=== PATIENT | female | born 1970 | race Caucasian/White ===

== ENCOUNTER → 2017-07-26 | Outpatient (CLI) | payer OTHER ==
--- NOTE | 2017-07-26 11:11 | MM ---
Reason for exam: additional evaluation requested from prior study. Last mammogram was performed 1 year and 10 months ago. History: Took hormonal contraceptives for 1 year. MG 3D Diag Mammo W/Cad ALANNAH Bilateral CC and MLO view(s) were taken. ML and spot compression MLO view(s) were taken of the left breast. Prior study comparison: October 01, 2015, bilateral MG 3d screening mammo w/cad. August 06, 2014, bilateral MG work up mamm w CAD BILAT. The breast tissue is extremely dense which could obscure a lesion on mammography. There is no discrete abnormality. These results were verbally communicated with the patient and result sheet given to the patient on 07/26/17. ASSESSMENT: Negative, BI-RAD 1 RECOMMENDATION: Routine screening mammogram of both breasts in 1 year.
== END | disposition home or self-care (01) ==
LOC: RADMAMWWP 07:47
PROVIDERS: ATTEND Family Medicine
DX: R92.8 Other abnormal and inconclusive findings on diagnostic imaging of breast (principal)
CPT/HCPCS: 77066; G0279

== ENCOUNTER → 2017-10-15 | Outpatient (CLI) | payer OTHER ==
--- NOTE | 2017-10-15 23:05 | XR ---
EXAMINATION TYPE: XR shoulder complete RT DATE OF EXAM: 10/15/2017 COMPARISON: NONE HISTORY: Pain TECHNIQUE: Three views are submitted. FINDINGS: The osseous structures are intact. There is no acute fracture or dislocation. The AC joint is maint ained. IMPRESSION: 1. No acute process.
== END | disposition home or self-care (01) ==
LOC: RADXRMAIN 11:41
PROVIDERS: ATTEND Emergency Medicine
DX: S29.012A Strain of muscle and tendon of back wall of thorax, initial encounter (principal)

== ENCOUNTER → 2018-05-17 | Outpatient (CLI) | payer BC, OTHER ==
--- NOTE | 2018-05-17 10:52 | FL ---
ESOPHOGRAM. HISTORY: Dysphagia Esophagram was performed per the air contrast technique. The patient swallowed barium and effervesce nt crystals without difficulty or delay. There is anterior fixation plate noted extending from C3 thr ough C5. The plate does impress upon the posterior wall of the cervical esophagus. Esophageal peristalsis and motility appear to be within normal limits. There is no evidence for filling defect, mass or diverticulum. No hiatal hernia seen. Subsequently single contrast cervical esophagram was performed which fails demonstrate evidence for a spiration penetration or mass. IMPRESSION: 1.There is anterior fixation plate noted extending from C3 through C5. The plate does impress upon th e posterior wall of the cervical esophagus. Otherwise unremarkable study.
== END | disposition home or self-care (01) ==
LOC: RADFLWHC 09:34
PROVIDERS: ATTEND Surgery
DX: T84.89XA Other specified complication of internal orthopedic prosthetic devices, implants and grafts, initial encounter (principal); R13.10 Dysphagia, unspecified; K21.9 Gastro-esophageal reflux disease without esophagitis; Z98.1 Arthrodesis status
CPT/HCPCS: 74220

== ENCOUNTER 2018-05-21 10:05 | Day surgery (SDC) | payer OTHER ==
[2018-05-20 08:33] VITALS: BMI 20.1
[~2018-05-21 10:05] MED LIST: DEXAMETHASONE SOD PHOSPHATE 10 MG/ML 1 ML VIAL IV ONE; HYDROmorphone 0.5 MG/0.5 ML SYRINGE IVP PRN; LACTATED RINGERS 1,000 ML IV SCH; LIDOCAINE 1% 20 ML VIAL (10MG/ML) FOR IV START INTRADERMA PRN; ONDANSETRON 4 MG/2 ML VIAL IVP ONE; SCOPOLAMINE 1.5MG/72HR PATCH TRANSDERM ONE
[2018-05-21 10:28] VITALS: RESP 16; TEMP 99.4
[2018-05-21] MEDS ORDERED: LIDOCAINE 1% INJ 10MG/ML (20 ML MDV) ONE (10:43)
[2018-05-21] MEDS ORDERED: PROPOFOL 10 MG/ML 20 ML VIAL IV ONE (10:43)
--- NOTE | 2018-05-21 10:48 | P.GSHP ---
History of Present Illness H&P Date: 05/21/18 Chief Complaint: GERD, dysphagia This a 48-year-old female who presents today for EGD. She's had issues with GERD and dysphagia. Past Medical History Past Medical History: Musculoskeletal Disorder Additional Past Medical History / Comment(s): Dysphagia; chronic neck pain History of Any Multi-Drug Resistant Organisms: None Reported Past Surgical History: Section Additional Past Surgical History / Comment(s): ovarian cyst X3; NECK FUSION - 2010 Past Anesthesia/Blood Transfusion Reactions: No Reported Reaction Additional Past Anesthesia/Blood Transfusion Reaction / Comment(s): PT STATES SHE IS OVERLY-EMOTIONAL WHEN SHE WAKES UP FROM ANESTHESIA Smoking Status: Current every day smoker - Past Family History Mother Family Medical History: No Reported History Medications and Allergies Home Medications Medication Instructions Recorded Confirmed Type ALPRAZolam [Xanax] 1 mg PO Q8HR PRN 09/25/14 05/21/18 History HYDROcodone/APAP 5-325MG [[place] 5] 1 each PO Q4HR PRN 09/25/14 05/21/18 History Allergies Allergy/AdvReac Type Severity Reaction Status Date / Time codeine Allergy Anaphylaxis Verified 05/21/18 10:22 Penicillins Allergy Itching Verified 05/21/18 10:22 Surgical - Exam Vital Signs Temp Pulse Resp BP Pulse Ox 99.4 F 75 16 123/56 99 05/21/18 10:26 05/21/18 10:26 05/21/18 10:26 05/21/18 10:26 05/21/18 10:26 - General well developed, no distress - Eyes PERRL - ENT normal pinna - Neck no masses - Respiratory normal expansion - Cardiovascular Rhythm: regular - Abdomen Abdomen: soft, non tender Assessment and Plan Assessment: GERD, dysphagia. We'll perform EGD.
[2018-05-21] MEDS ORDERED: IV FLUID CONTINUATION 700 ML IV ONE (10:59)
--- NOTE | 2018-05-21 10:59 | P.OP ---
Date of Procedure: 05/21/18 Preoperative Diagnosis: GERD Postoperative Diagnosis: Antral gastritis Small hiatal hernia Mild esophagitis Procedure(s) Performed: EGD Anesthesia: MAC Surgeon: Sandeep Sotelo Pathology: other (Antral, esophagus) Condition: stable Disposition: PACU Description of Procedure: Patient's placed on the endoscopy table in the lateral position. She received IV sedation. The gastroscope placed oropharynx and passed in the esophagus into the stomach. Scope was then placed through the pylorus. The first and second portion of the duodenum appeared normal. Scope was then brought back the antrum appeared mildly inflamed. A biopsies performed. The scope was unretroflexed and remainder stomach appeared normal. There was a small hiatal hernia. The GE junction was at 40 cm.. The distal esophagus appeared inflamed a biopsies performed. The proximal esophagus appeared normal. The scope was withdrawn for patient.
[2018-05-21 11:09] VITALS: BP 106/71; PULSE 71
== END 2018-05-21 12:01 | disposition home or self-care (01) ==
LOC: ORWHC2ENDO 10:05
PROVIDERS: ATTEND Surgery
DX: K31.9 Disease of stomach and duodenum, unspecified (principal); K29.60 Other gastritis without bleeding; K21.0 Gastro-esophageal reflux disease with esophagitis; F17.210 Nicotine dependence, cigarettes, uncomplicated; K44.9 Diaphragmatic hernia without obstruction or gangrene; G89.29 Other chronic pain; M54.2 Cervicalgia; Z79.899 Other long term (current) drug therapy; Z88.5 Allergy status to narcotic agent; Z88.0 Allergy status to penicillin; F41.9 Anxiety disorder, unspecified
CPT/HCPCS: 81025; 88305; 43239; J2001; J2704

== ENCOUNTER 2019-12-08 19:59 | Inpatient (IN) | payer OTHER ==
[2019-12-08] MEDS ORDERED: ONDANSETRON 4 MG/2 ML VIAL IVP STA (20:22)
--- NOTE | 2019-12-08 20:25 | ED ---
General Adult HPI - General Chief complaint: GI Bleed Stated complaint: Abd Pain Time Seen by Provider: 12/08/19 20:11 Source: patient, family Mode of arrival: wheelchair Limitations: no limitations - History of Present Illness Initial comments: Dictation was produced using Rainbow dictation software. please excuse any grammatical, word or spelling errors. This patient was cared for during a federal and state declared state of emergency secondary to Covid 19 Chief Complaint: 49-year-old feel presents with bright red blood per rectum History of Present Illness: 79-year-old codys presents with bright red blood per rectum. Patient states that all day today she's had bright red blood every time she has a bowel movement. She does present with some pelvic pain. Patient has any medical problems. Denies any history of hemorrhoids. States she does have some crampy suprapubic pain. Mild nausea but no vomiting. Patient denies ever experiencing anything like this before. She does not think anything is patient denies any comorbidities. The ROS documented in this emergency department record has been reviewed and confirmed by me. Those systems with pertinent positive or negative responses have been documented in the HPI. All other systems are other negative and/or noncontributory. PHYSICAL EXAM: General Impression: Alert and oriented x3, acute distress secondary to pain HEENT: Normocephalic atraumatic, extra-ocular movements intact, pupils equal and reactive to light bilaterally, mucous membranes moist. Cardiovascular: Heart regular rate and rhythm Chest: Able to complete full sentences, no retractions, no tachypnea Abdomen: abdomen soft, non-tender, non-distended, no organomegaly Musculoskeletal: Pulses present and equal in all extremities, no peripheral edema Motor: no focal deficits noted Neurological: CN II-XII grossly intact, no focal motor or sensory deficits noted Skin: Intact with no visualized rashes Psych: Normal affect and mood Rectal exam: No gross blood, pain with digital rectal exam, multiple skin tags and polyps at the external anus ED course: 49-year-old female presents with bright blood per rectum and abdominal pain. All signs upon arrival are within acceptable limits. Laboratory evaluation obtained. CBC shows mild leukocytosis of 15.7. Coag panel unremarkable. Metabolic panel is negative. Computed tomography scan of the abdomen and pelvis was obtained showing wall thickening of the descending colon suggestive of nonspecific colitis. Patient given IV analgesia and so has persistent pain. Considering patient's degree of abdominal pain will have patient admitted for pain control and GI consultation. Discussed patient case with Dr. Damico who is willing to accept patients care. EKG interpretation: Ventricular rate 60, sinus rhythm,. Interval 106, QRS 80, QTC 420. No PA prolongation, no QTC prolongation, no ST or T-wave changes noted. . Overall, this EKG is unremarkable - Related Data Home Medications Medication Instructions Recorded Confirmed ALPRAZolam [Xanax] 1 mg PO BID PRN 09/25/14 12/08/19 Allergies Allergy/AdvReac Type Severity Reaction Status Date / Time codeine Allergy Anaphylaxis Verified 12/08/19 23:06 Penicillins Allergy Itching Verified 12/08/19 23:06 Review of Systems ROS Statement: Those systems with pertinent positive or pertinent negative responses have been documented in the HPI. ROS Other: All systems not noted in ROS Statement are negative. Past Medical History Past Medical History: No Reported History History of Any Multi-Drug Resistant Organisms: None Reported Past Surgical History: Section Additional Past Surgical History / Comment(s): ovarian cyst X3; X2; NECK FUSION - 2011 Past Anesthesia/Blood Transfusion Reactions: No Reported Reaction Additional Past Anesthesia/Blood Transfusion Reaction / Comment(s): PT STATES SHE IS OVERLY-EMOTIONAL WHEN SHE WAKES UP FROM ANESTHESIA Past Psychological History: Anxiety Smoking Status: Current every day smoker Past Alcohol Use History: Occasional Past Drug Use History: None Reported General Exam Limitations: no limitations Course Vital Signs 12/08/19 12/08/19 20:00 23:06 Temperature 97.9 F Pulse Rate 81 79 Respiratory 17 17 Rate Blood Pressure 115/84 110/60 O2 Sat by Pulse 98 99 Oximetry Medical Decision Making - Lab Data Result diagrams: 12/08/19 20:13 12/08/19 20:13 Lab Results 12/08/19 12/08/19 12/08/19 Range/Units 20:12 20:13 20:13 WBC 15.7 H (3.8-10.6) k/uL RBC 4.58 (3.80-5.40) m/uL Hgb 14.2 (11.4-16.0) gm/dL Hct 44.6 (34.0-46.0) % MCV 97.4 (80.0-100.0) fL MCH 31.0 (25.0-35.0) pg MCHC 31.8 (31.0-37.0) g/dL RDW 12.8 (11.5-15.5) % Plt Count 227 (150-450) k/uL Neutrophils % 73 % Lymphocytes % 20 % Monocytes % 5 % Eosinophils % 1 % Basophils % 0 % Neutrophils # 11.4 H (1.3-7.7) k/uL Lymphocytes # 3.1 (1.0-4.8) k/uL Monocytes # 0.7 (0-1.0) k/uL Eosinophils # 0.2 (0-0.7) k/uL Basophils # 0.0 (0-0.2) k/uL PT 9.9 (9.0-12.0) sec INR 1.0 (<1.2) APTT 26.7 (22.0-30.0) sec Sodium (137-145) mmol/L Potassium (3.5-5.1) mmol/L Chloride (98-107) mmol/L Carbon Dioxide (22-30) mmol/L Anion Gap mmol/L BUN (7-17) mg/dL Creatinine (0.52-1.04) mg/dL Est GFR (CKD-EPI)AfAm (>60 ml/min/1.73 sqM) Est GFR (CKD-EPI)NonAf (>60 ml/min/1.73 sqM) Glucose (74-99) mg/dL Calcium (8.4-10.2) mg/dL Urine HCG, Qual (Not Detectd) Blood Type O Negative Blood Type Recheck O Neg Bld Type Recheck Status No Antibody Screen NEGATIVE Spec Expiration Date 12/11/2019231112/08/19 12/08/19 Range/Units 20:13 20:13 WBC (3.8-10.6) k/uL RBC (3.80-5.40) m/uL Hgb (11.4-16.0) gm/dL Hct (34.0-46.0) % MCV (80.0-100.0) fL MCH (25.0-35.0) pg MCHC (31.0-37.0) g/dL RDW (11.5-15.5) % Plt Count (150-450) k/uL Neutrophils % % Lymphocytes % % Monocytes % % Eosinophils % % Basophils % % Neutrophils # (1.3-7.7) k/uL Lymphocytes # (1.0-4.8) k/uL Monocytes # (0-1.0) k/uL Eosinophils # (0-0.7) k/uL Basophils # (0-0.2) k/uL PT (9.0-12.0) sec INR (<1.2) APTT (22.0-30.0) sec Sodium 138 (137-145) mmol/L Potassium 3.8 (3.5-5.1) mmol/L Chloride 107 (98-107) mmol/L Carbon Dioxide 23 (22-30) mmol/L Anion Gap 8 mmol/L BUN 12 (7-17) mg/dL Creatinine 0.70 (0.52-1.04) mg/dL Est GFR (CKD-EPI)AfAm >90 (>60 ml/min/1.73 sqM) Est GFR (CKD-EPI)NonAf >90 (>60 ml/min/1.73 sqM) Glucose 106 H (74-99) mg/dL Calcium 9.3 (8.4-10.2) mg/dL Urine HCG, Qual Not Detected (Not Detectd) Blood Type Blood Type Recheck Bld Type Recheck Status Antibody Screen Spec Expiration Date Disposition Clinical Impression: Abdominal pain Disposition: ADMITTED IP TO THIS HOSP Condition: Fair Referrals: eDjon Damico MD [Primary Care Provider] - 1-2 days Decision Time: 23:12
[2019-12-08 20:39] LABS: Basophils % (A) 0 %; Eosinophils # (A) 0.2 k/uL (0-0.7); Eosinophils % (A) 1 %; HCT 44.6 % (34.0-46.0); HGB 14.2 gm/dL (11.4-16.0); Lymphocytes # (A) 3.1 k/uL (1.0-4.8); Lymphocytes % (A) 20 %; MCHC 31.8 g/dL (31.0-37.0); MCV 97.4 fL (80.0-100.0); Mean Platelet Volume 9.4; Monocytes # (A) 0.7 k/uL (0-1.0); Monocytes % (A) 5 %; Neutrophils # (A) 11.4 k/uL (1.3-7.7); Neutrophils % (A) 73 %; Platelet Count 227 k/uL (150-450); RBC 4.58 m/uL (3.80-5.40); RDW 12.8 % (11.5-15.5); WBC 15.7 k/uL (3.8-10.6)
[2019-12-08 20:48] LABS: African American GFR (CKD) >90 (>60 ml/min/1.73 sqM); Anion Gap 8 mmol/L; Blood Urea Nitrogen 12 mg/dL (7-17); Calcium 9.3 mg/dL (8.4-10.2); Carbon Dioxide 23 mmol/L (22-30); Chloride 107 mmol/L (98-107); Glucose 106 mg/dL (74-99); Non-African American GFR(CKD) >90 (>60 ml/min/1.73 sqM); Partial Thromboplastin Time 26.7 sec (22.0-30.0); Potassium 3.8 mmol/L (3.5-5.1); Prothrombin Time 9.9 sec (9.0-12.0); Sodium 138 mmol/L (137-145)
--- NOTE | 2019-12-08 21:40 | CT ---
EXAMINATION TYPE: CT abdomen pelvis w con DATE OF EXAM: 12/08/2019 COMPARISON: 12/12/2012 HISTORY: Pelvic pain. CT DLP: 531.4 mGycm Automated exposure control for dose reduction was used. CONTRAST: Performed with IV Contrast, patient injected with 100 mL of Isovue 300. Lung bases are clear. There is no pleural effusion. Heart size is normal. There is no pericardial eff usion. Liver spleen pancreas gallbladder stomach appear normal. Bile ducts are not dilated. There is no adrenal mass. Kidneys show satisfactory contrast opacification. There is no hydronephrosi s. Ureters are not dilated. Bladder distends smoothly. Uterus is anteverted. There is no inguinal hernia. There is no free fluid in the pelvis. There is 3 cm cyst on the left ovary. There is some diffuse wall thickening of the descending colon extending into the sigmoid colon. There is no evidence of free air. There is no ascites. There is no evidence of a bowel obstruction. The porfirio mbar vertebra have normal spacing and alignment. Posterior elements are intact. Bony pelvis appears i ntact. There is no evidence of thickened appendix. Appendix is partly seen and appears normal. IMPRESSION: There is some wall thickening of the descending colon suggestive of nonspecific colitis that is a robel nge compared to old exam. Cyst on the left ovary.
[2019-12-08] MEDS ORDERED: KETOROLAC 30 MG/ML 1 ML VIAL IVP STA (22:54)
[2019-12-08] MEDS ORDERED: MORPHINE SULFATE 4 MG/ML SYRINGE IVP STA (22:58)
[2019-12-08] MEDS ORDERED: ACETAMINOPHEN TAB 325 MG TAB PO PRN (23:08)
[2019-12-08] MEDS ORDERED: NALOXONE 0.4 MG/ML 1 ML VIAL IV PRN (23:08)
[2019-12-08] MEDS: PANTOPRAZOLE 40 MG/10 ML VIAL IV SCH (23:28)
[2019-12-08] MEDS: SODIUM CHLORIDE 0.9% 1,000 ML IV SCH (23:28)
[2019-12-09] MEDS: MORPHINE SULFATE 4 MG/ML SYRINGE IV PRN ×4 (04:30→20:01)
[2019-12-09] MEDS: ONDANSETRON 4 MG/2 ML VIAL IVP PRN ×2 (04:31→21:11)
--- NOTE | 2019-12-09 08:50 | HP ---
HISTORY AND PHYSICAL 49-year-old female came in with a GI bleed to the emergency room, bright red blood per rectum every time she has a bowel movement in the last 24 hours. She denies any history of hemorrhoids. She has lower abdominal pain. Has never had anything like this before. REVIEW OF SYSTEMS: Fourteen-point review of systems negative except for anxiety, chronic cervical and lumbar disc disease. PHYSICAL EXAM: Vital signs reviewed. Temp 97.9, pulse 70 to 81, respiratory 16-20, blood pressure 110 to 115 over 60s to 80s, O2 98 to 99% on room air. HEAD: Normocephalic, atraumatic. Cardiovascular S1, S2. ABDOMEN: Soft. MUSCULOSKELETAL: Range of motion. Tender to palpation, paracervical muscles. Cranial nerves are intact. SKIN no visible rash. PSYCH fair mood and affect. CBC shows mild leukocytosis 15.7. CT scan of the abdomen and pelvis showing mild thickening of the descending colon, nonspecific colitis. IV analgesia pain control. GI consultation is pending. EKG shows ventricular rate is normal. No prolongation or ST changes. Home medicines Xanax 1 mg b.i.d. p.r.n. ALLERGIES: CODEINE, PENICILLIN. PAST SURGICAL HISTORY: x2, neck fusion. Current everyday smoker. Occasional alcohol. White count 15.7, hemoglobin 14.2. ASSESSMENT AND PLAN: 1. Acute abdominal pain. 2. Gastrointestinal bleed. GI consult. 3. Monitor hemoglobin. 4. History of anxiety. 5. Cervical disc disease. 6. Continue current home medicines. 7. Monitor for any signs of bleeding. 8. She has positive stool occult blood. Possibly need a colonoscopy. Await for Gastroenterology recommendations. MMODL / IJN: [id number] /
[2019-12-09] MEDS: PANTOPRAZOLE 40 MG/10 ML VIAL IV SCH (08:52)
[2019-12-09 09:25] LABS: Basophils % (A) 0 %; Eosinophils # (A) 0.3 k/uL (0-0.7); Eosinophils % (A) 3 %; HCT 38.3 % (34.0-46.0); HGB 12.8 gm/dL (11.4-16.0); Lymphocytes # (A) 3.7 k/uL (1.0-4.8); Lymphocytes % (A) 35 %; MCH 33.1 pg (25.0-35.0); MCHC 33.5 g/dL (31.0-37.0); MCV 98.8 fL (80.0-100.0); Mean Platelet Volume 9.9; Monocytes # (A) 0.5 k/uL (0-1.0); Monocytes % (A) 5 %; Neutrophils # (A) 5.7 k/uL (1.3-7.7); Neutrophils % (A) 54 %; Platelet Count 203 k/uL (150-450); RBC 3.87 m/uL (3.80-5.40); WBC 10.6 k/uL (3.8-10.6)
[2019-12-09] MEDS: SODIUM CHLORIDE 0.9% 1,000 ML IV SCH ×2 (10:29→21:11)
--- NOTE | 2019-12-09 16:35 | CONS ---
CONSULTATION DATE OF DICTATION: 12/09/2019 REASON FOR CONSULTATION: Abdominal pain and rectal bleeding. HISTORY OF PRESENT ILLNESS: The patient is a 49-year-old pleasant white female who came into the emergency room complaining of severe lower abdominal pain that started yesterday morning. The pain was mostly in the suprapubic and left lower quadrant area followed by 2 hard stools, and subsequently she had multiple episodes of bright red blood per rectum. She had at least 7 or 8 of these episodes, came into the emergency room and had a CT of the abdomen and pelvis done that showed thickening of the left colon consistent with colitis. She was admitted to the hospital for further evaluation. This morning she had about 3 episodes of bright red blood per rectum. Her abdominal pain has slightly improved. She never had these symptoms in the past. No prior history of colonoscopy. Her hemoglobin remains stable at 13 g/dL. PAST MEDICAL HISTORY: Anxiety. PAST SURGICAL HISTORY: Unremarkable. HOME MEDICATIONS: Xanax. ALLERGIES: CODEINE and PENICILLIN. SOCIAL HISTORY: Chronic smoker. No alcohol use. FAMILY HISTORY: Unremarkable. REVIEW OF SYSTEMS: CARDIOPULMONARY: No chest pain or shortness of breath. GENITOURINARY: No dysuria or hematuria. MUSCULOSKELETAL: Unremarkable. SKIN: Unremarkable. ENDOCRINE: Unremarkable. PSYCHIATRIC: Unremarkable. NEUROLOGY: Unremarkable. ENT/VISION: Unremarkable. CONSTITUTIONAL: No recent weight loss. No fever, chills, night sweats. PAST SURGICAL HISTORY: section, cervical neck fusion and ovarian cyst removal. PHYSICAL EXAMINATION: Blood pressure is 115/84, pulse rate 81, temperature 97.9. HEENT examination unremarkable. Conjunctivae pink. Sclerae anicteric. Oral cavity no lesions. NECK: No JVD or lymph node enlargement. CHEST: Clear to auscultation. HEART: Regular rate and rhythm. ABDOMEN: Soft. Bowel sounds are positive. No organomegaly. EXTREMITIES: No pedal edema. SKIN: No rashes. NEUROLOGIC: Alert and oriented x3. No focal deficits. LABS: WBC 10.6, hemoglobin 12.8, platelets normal. Basic metabolic panel is within normal limits. Stool occult blood positive. C difficile is negative. CT of the abdomen and pelvis done in the emergency room did show thickening of the colon involving the descending colon suspicious for acute colitis. IMPRESSION: This is a patient who presented to the hospital with acute onset of lower abdominal pain followed by rectal bleeding that started yesterday morning. She had several episodes of bright red blood per rectum. Her hemoglobin remains stable at 12.5 g/dL. CT of the abdomen showed thickening of the descending colon consistent with nonspecific colitis. Her clinical presentation is very consistent with acute ischemic colitis, but possibility of infectious colitis cannot be excluded. C difficile toxin is negative. RECOMMENDATIONS: 1. Start her on a clear liquid diet. 2. Monitor CBC on a daily basis. 3. Will proceed with a colonoscopy tomorrow. Discussed with her risks, benefits and complications of the procedure, and she is agreeable to it. Thank you for this consultation. MMODL / IJN: [id number] /
[2019-12-09] MEDS: ALPRAZolam 1 MG TAB PO PRN (16:56)
[2019-12-09] MEDS ORDERED: PEG 3350-NA SULF,BICARB,CL/KCL 4,000 ML BOTTLE PO ONE (17:00)
[2019-12-10] MEDS: MORPHINE SULFATE 4 MG/ML SYRINGE IV PRN ×5 (00:06→22:21)
[2019-12-10] MEDS: SODIUM CHLORIDE 0.9% 1,000 ML IV SCH ×3 (04:34→22:21)
[2019-12-10 06:28] LABS: Basophils % (A) 0 %; Eosinophils # (A) 0.4 k/uL (0-0.7); Eosinophils % (A) 3 %; HCT 34.3 % (34.0-46.0); HGB 11.3 gm/dL (11.4-16.0); Lymphocytes # (A) 2.7 k/uL (1.0-4.8); Lymphocytes % (A) 25 %; MCH 32.7 pg (25.0-35.0); MCV 99.2 fL (80.0-100.0); Monocytes # (A) 0.7 k/uL (0-1.0); Monocytes % (A) 6 %; Neutrophils # (A) 6.9 k/uL (1.3-7.7); Neutrophils % (A) 63 %; Platelet Count 177 k/uL (150-450); RBC 3.46 m/uL (3.80-5.40); RDW 12.9 % (11.5-15.5); WBC 10.9 k/uL (3.8-10.6)
[2019-12-10] MEDS: PANTOPRAZOLE 40 MG/10 ML VIAL IV SCH (08:33)
[2019-12-10] MEDS ORDERED: IV FLUID CONTINUATION 1,000 ML IV ONE (12:17)
[2019-12-10] MEDS ORDERED: PROPOFOL 10 MG/ML 20 ML VIAL IV ONE (12:19)
--- NOTE | 2019-12-10 12:42 | P.PCN ---
Date of Procedure: 12/10/19 Procedure(s) Performed: BRIEF HISTORY: Patient is a 48-year-old pleasant white female admitted hospital with lower abdominal pain and acute lower GI bleed. CAT scan showed left sided colitis. She is scheduled scheduled for an colonoscopy to evaluate further. PROCEDURE PERFORMED: Colonoscopy with biopsy. PREOPERATIVE DIAGNOSIS: Lower abdominal pain and acute lower GI bleed. IV sedation per Anesthesia. PROCEDURE: After informed consent was obtained, the patient, was brought into the endoscopy unit. IV sedation was administered by Anesthesia under continuous monitoring. Digital rectal examination was normal. Initially the Olympus CF-160 flexible video colonoscope was then inserted in the rectum, gradually advanced into the cecum without any difficulty. Careful examination was performed as the scope was gradually being withdrawn. Ileocecal valve and the appendiceal orifice were visualized and appeared normal. Prep was excellent. Mucosa of the cecum, ascending colon, transverse colon, descending colon, appeared normal. In the distal descending colon and rectosigmoid colon extending from 25-40 cm from the anal verge there was segmental colitis with mucosal erythema and congested appearing mucosa consistent with ischemic colitis. Multiple biopsies. Rest of the sigmoid colon, and rectum appeared normal. Retroflexion was performed in the rectum and no lesions were seen. The patient tolerated the procedure well. IMPRESSION: Segmental colitis involving the proximal sigmoid colon and distal descending colon extending from 25-40 cm from the anal verge with mucosal erythema and congestion appearing mucosa consistent with ischemic colitis Rest of the colon appeared normal RECOMMENDATIONS: Findings of this examination were discussed with the patient. She will await biopsy results. Diet will be advanced as tolerated. Her symptoms improved she can be discharged home later today or tomorrow and outpatient follow-up in 2 weeks.
[2019-12-10 13:16] VITALS: RESP 16
[2019-12-10] MEDS ORDERED: LACTATED RINGERS 1,000 ML IV SCH (13:32)
[2019-12-10] MEDS: ALPRAZolam 1 MG TAB PO PRN (15:36)
[2019-12-10] MEDS: methylPREDNISolone SOD SUCCI 125 MG/2 ML VIAL IV SCH (16:35)
[2019-12-10 22:02] LABS: Glucose,Whole Blood 240 mg/dL (75-99)
[2019-12-10] MEDS: INSULIN ASPART (NovoLOG) 100 UNIT/ML VIAL SQ SCH (22:10)
[2019-12-10] MEDS ORDERED: ALPRAZolam 0.5 MG TAB PO PRN (23:49)
[2019-12-11] MEDS: methylPREDNISolone SOD SUCCI 125 MG/2 ML VIAL IV SCH ×2 (00:04→10:18)
[2019-12-11] MEDS: MORPHINE SULFATE 4 MG/ML SYRINGE IV PRN ×2 (03:09→08:13)
[2019-12-11 07:15] LABS: Glucose,Whole Blood 165 mg/dL (75-99)
[2019-12-11] MEDS: INSULIN ASPART (NovoLOG) 100 UNIT/ML VIAL SQ SCH (07:18)
[2019-12-11 09:24] VITALS: BP 108/65; PULSE 65; TEMP 97.8
[2019-12-11] MEDS: PANTOPRAZOLE 40 MG/10 ML VIAL IV SCH (10:18)
--- NOTE | 2019-12-11 16:08 | P.DS ---
Providers Date of admission: 12/10/19 09:35 Expected date of discharge: 12/11/19 Attending physician: Dejon Damico Consults: 12/08/19 23:09 Consult Physician Routine Consulting Provider: Hannah Griffith Consult Reason/Comments: abdominal pain Do you want consulting provider notified?: Yes Primary care physician: Dejon Damico [facility] Course: Final Diagnoses: Acute lower abdominal pain with rectal bleeding, CT report thickening of the descending colon consistent with nonspecific colitis. Status post colonoscopy suggesting ischemic colitis. Stool culture positive for lactoferrin. Anxiety Ongoing nicotine dependence. Hospital course: This a 49-year-old female admitted with acute lower abdominal pain with rectal bleeding. CT report thickening of the descending colon. Status post colonoscopy reporting segmental colitis involving the proximal sigmoid colon and distal descending colon extending from 25-40 cm from the anal verge with treatment close of arrhythmia and congestion appearing mucosa consistent with ischemic colitis. Biopsies obtained. Stool culture positive for lactoferrin. Patient tolerated diet advancement with no nausea vomiting. Significant clinical improvement. No antibiotics, no steroids recommended at discharge as per GI. Cleared by GI for discharge. Smoking cessation reinforced. Patient will be discharged home in a stable condition with guarded prognosis. The impression and plan of care has been dictated as directed. Dr.: I performed a history and examination of this patient, discussed the same with the dictator. I agree with the dictator's note ,documented as a scribe. Any additional findings or plans will be noted. Patient Condition at Discharge: Stable Plan - Discharge Summary Discharge Rx Participant: No New Discharge Prescriptions: Continue ALPRAZolam [Xanax] 1 mg PO BID PRN PRN Reason: Anxiety Discharge Medication List ALPRAZolam [Xanax] 1 mg PO BID PRN 09/25/14 [History] Follow up Appointment(s)/Referral(s): Dejon Damico MD [Primary Care Provider] - 12/16/19 11:15 am Hannah Griffith MD [STAFF PHYSICIAN] - 12/18/19 1:00 pm Activity/Diet/Wound Care/Special Instructions: Diet as tolerated. drink fluids. Activity as tolerated. Follow up as directed Call office sooner with any return or worsening of the symptoms that brought you her or any concerns. Good hand washing for all in the house. Discharge Disposition: HOME SELF-CARE
== END 2019-12-11 11:14 | disposition home or self-care (01) | DRG 395 ==
LOC: EC 19:59 → 3SCARD 23:08 → OBSVTOIN 12-10 09:35 → 6PED 12-10 12:57
PROVIDERS: ADMIT Family Medicine; ATTEND Family Medicine
PROC: 0DBM8ZX Excision of Descending Colon, Via Natural or Artificial Opening Endoscopic, Diagnostic (ICD-10-PCS; principal; 2019-12-10 07:45)
PROC: 0DBN8ZX Excision of Sigmoid Colon, Via Natural or Artificial Opening Endoscopic, Diagnostic (ICD-10-PCS; principal; 2019-12-10 07:45)
DX: K55.039 Acute (reversible) ischemia of large intestine, extent unspecified (principal); F17.210 Nicotine dependence, cigarettes, uncomplicated; Z20.828 Contact with and (suspected) exposure to other viral communicable diseases; F41.9 Anxiety disorder, unspecified; M50.90 Cervical disc disorder, unspecified, unspecified cervical region; M51.9 Unspecified thoracic, thoracolumbar and lumbosacral intervertebral disc disorder; Z87.42 Personal history of other diseases of the female genital tract; Z71.6 Tobacco abuse counseling; Z98.891 History of uterine scar from previous surgery; Z98.1 Arthrodesis status; Z98.890 Other specified postprocedural states; Z88.5 Allergy status to narcotic agent; Z88.0 Allergy status to penicillin
CPT/HCPCS: 36415; 45380; 74177; 80048; 81025; 82272; 83630; 85025; 85610; 85730; 86850; 86900; 86901; 87045; 87046; 87324; 88305; 93005; 96374; 96375; 99285

== ENCOUNTER → 2021-01-11 | Outpatient (CLI) | payer OTHER ==
--- NOTE | 2021-01-14 13:20 | MM ---
Reason for exam: clinical finding. Last mammogram was performed 3 years and 6 months ago. History: Took hormonal contraceptives for 1 year. Physical Findings: Nurse Summary: 0.5 x 0.5cm nodule in the left breast at the nipple/upper outer quadrant (nurse ts). MG 3D Diag Mammo W/Cad ALANNAH Bilateral CC and MLO view(s) were taken. Prior study comparison: July 26, 2017, bilateral MG 3d diag mammo w/cad ALANNAH. October 01, 2015, bilateral MG 3d screening mammo w/cad. The breast tissue is heterogeneously dense. This may lower the sensitivity of mammography. There is no discrete abnormality including area of concern. These results were verbally communicated with the patient and result sheet given to the patient on 01/11/21. ASSESSMENT: Incomplete: need additional imaging evaluation, BI-RAD 0 RECOMMENDATION: Ultrasound of the left breast.
--- NOTE | 2021-01-14 13:21 | USB ---
Reason for exam: additional evaluation requested from abnormal screening. History: Took hormonal contraceptives for 1 year. US Breast Limited LT Left limited breast ultrasound including focal area of concern, retroareolar and axilla demonstrates no cystic or solid lesion seen. Duct ectasia at the nipple. These results were verbally communicated with the patient and result sheet given to the patient on 01/11/21. ASSESSMENT: Benign, BI-RAD 2 RECOMMENDATION: Routine screening mammogram of both breasts in 1 year. Manage patient on a clinical basis.
== END | disposition home or self-care (01) ==
LOC: RADMAMWWP 12:54
PROVIDERS: ATTEND Family Medicine
DX: R92.2 Inconclusive mammogram (principal); N60.42 Mammary duct ectasia of left breast
CPT/HCPCS: 77066; 76642; G0279; 77062

== ENCOUNTER → 2022-04-17 | Outpatient (CLI) | payer OTHER ==
--- NOTE | 2022-04-17 08:43 | MM ---
Reason for Exam: Clinical finding. Last mammogram was performed 1 year(s) and 3 month(s) ago. Patient History: Menarche at age 11. First Full-Term at age 31. Perimenopausal. Patient used Hormonal Contraceptives for 1 year. Risk Values: Betty 5 year model risk: 1.2%. NCI Lifetime model risk: 10.8%. Prior Study Comparison: 09/02/2008 Bilateral Screening Mammogram, [facility]. 08/03/2014 Bilateral Screening Mammogram, [facility]. 08/06/2014 Bilateral Diagnostic Mammogram, [facility]. 10/01/2015 Bilateral Screening Mammogram, [facility]. 07/26/2017 Bilateral Diagnostic Mammogram, [facility]. 01/11/2021 Bilateral Diagnostic Mammogram, [facility]. 01/11/2021 Left Diagnostic Ultrasound, [facility]. Tissue Density: The breast tissue is heterogeneously dense. This may lower the sensitivity of mammography. Findings: Analyzed By CAD. Grouped microcalcifications some which appear punctate upper outer quadrant left breast appears slightly increased. There is persistent palpable indicator along the upper outer quadrant. Otherwise, areas of asymmetric density remain unchanged. Overall Assessment: Incomplete: need additional imaging evaluation, BI-RAD 0 Management: Diagnostic Breast Ultrasound of both breasts. As ordered. Particular attention to the left upper outer quadrant palpable site. Results were given to the patient verbally at the time of exam. Electronically signed and approved by: Spenser Alcantar M.D. Radiologist
--- NOTE | 2022-04-17 09:22 | USB ---
Patient History: Menarche at age 11. First Full-Term at age 31. Perimenopausal. Patient used Hormonal Contraceptives for 1 year. Risk Values: Betty 5 year model risk: 1.2%. NCI Lifetime model risk: 10.8%. Technique: Method: Whole Breast Handheld. Prior Study Comparison: 10/01/2015 Bilateral Screening Mammogram, [facility]. 07/26/2017 Bilateral Diagnostic Mammogram, [facility]. 01/11/2021 Bilateral Diagnostic Mammogram, [facility]. Findings: The whole breast of both breasts, the area of palpable concern of the left breast, the axilla of both breasts and the retroareolar of both breasts were scanned. RIGHT: Tiny 3 mm benign cyst 12:00 position, 4 cm from the nipple. An additional benign 5 mm cyst behind the nipple. Scattered dense tissue is present throughout. No other solid or cystic lesion. No axillary lymphadenopathy. LEFT: Scattered dense tissue is present throughout, particularly at the 1:00 palpable site, 9 cm from the nipple. There is a benign periareolar cyst 7:00, measuring 10 x 9 mm. No other solid or cystic lesion. Overall Assessment: Suspicious, BI-RAD 4 Management: Stereotactic Core Biopsy of the left breast. Of the upper outer quadrant grouped microcalcifications which are slightly increasing and correspond to the region of patient palpable site. Dense tissues are seen here by ultrasound. Results were given to the patient verbally at the time of exam. Electronically signed and approved by: Spenser Alcantar M.D. Radiologist
== END | disposition home or self-care (01) ==
LOC: RADMAMWWP 07:47
PROVIDERS: ATTEND Family Medicine
DX: R92.8 Other abnormal and inconclusive findings on diagnostic imaging of breast (principal)
CPT/HCPCS: 77066; 76641; G0279; 77062

== ENCOUNTER → 2022-04-28 | Day surgery (SDC) | payer OTHER ==
[2022-04-28 10:11] VITALS: RESP 16
[2022-04-28 11:13] VITALS: BP 102/69; PULSE 57; TEMP 98.1
--- NOTE | 2022-05-03 09:52 | MM ---
Risk Values: Betty 5 year model risk: 1.2%. NCI Lifetime model risk: 10.8%. Prior Study Comparison: 07/26/2017 Bilateral Diagnostic Mammogram, [facility]. 01/11/2021 Bilateral Diagnostic Mammogram, [facility]. 04/17/2022 Bilateral MG 3D diag mammo w/cad ALANNAH, [facility]. Pathology Description: Marker Left Behind. Approach: Lateral to Medial Needle Type: Eviva Cores: 8 Skin Nicks: 1 Gauge: 9 NONE The microcalcifications in question within the left breast were targeted by the undersigned. Procedure was performed by the undersigned. Informed consent was obtained and all of the patients questions were answered. The standard sterile technique was utilized and appropriate local anesthesia was obtained with 1% lidocaine. Mammotome probe was advanced and multiple core samples were obtained and sent to pathology for interpretation. Microclip marker was deployed at the site of biopsy. Post procedural mammogram demonstrates appropriate deployment of radiopaque clip marker. The patient tolerated the procedure well and left the department in stable condition. Pathology results are pending. Impression: Successful stereotactic core biopsy left breast. Pathology Results: Result: Benign, Fibrocystic change. LEFT BREAST, STEREOTACTIC CORE BIOPSY: Proliferative fibrocystic change with microcalcification, adenosis, fibrosis and columnar cell change. Overall Assessment: Benign Management: Diagnostic Mammogram of the left breast in 6 months. Electronically signed and approved by: Mathew Riggs M.D. Radiologis
== END | disposition home or self-care (01) ==
LOC: RADMAMWWP 09:56
PROVIDERS: ATTEND Family Medicine
DX: R92.8 Other abnormal and inconclusive findings on diagnostic imaging of breast (principal); N60.22 Fibroadenosis of left breast
CPT/HCPCS: 88305; 19081; A4648; J2001

== ENCOUNTER → 2022-12-06 | Outpatient (CLI) | payer OTHER ==
--- NOTE | 2022-12-07 09:35 | CTL ---
EXAMINATION TYPE: CT Low Dose Lung DATE OF EXAM ORDERED: 12/06/2022 HISTORY: . Lung cancer screening CT DLP: 47.[address] CTDI: 1.3 mGy Automated exposure control for dose reduction was used. SCREENING VISIT: COMPARISON: 09/25/2014 TECHNIQUE: Low dose computed tomography scan was performed through the chest at 1 mm thick sections a nd reconstructed images in multiple planes at 1 mm and [address] DIAGNOSTIC QUALITY: Satisfactory FINDINGS: Mild centrilobular emphysematous changes are seen. There is no evidence of focal pneumonia or pleural effusion. No pneumothorax. There are subsegmental changes involving both lungs compatible with scarr ing or atelectasis. There is 2 mm subpleural nodule right lower lobe axial image 206 is benign. Heart size is normal. No significant coronary artery calcification. Aorta of normal caliber with athe rosclerotic changes. Osseous structures intact. IMPRESSION: 1. Benign-appearing 2 mm right lower lobe nodule. CT LUNG RAD AND CT CHEST RECOMMENDATION: Lung-Rad 2 Benign Appearance or Behavior: Continue annual sc reening with LDCT in 12 months.
== END | disposition home or self-care (01) ==
LOC: RADCTMAIN 17:42
PROVIDERS: ATTEND Family Medicine
DX: Z12.2 Encounter for screening for malignant neoplasm of respiratory organs (principal); F17.210 Nicotine dependence, cigarettes, uncomplicated; R91.1 Solitary pulmonary nodule
CPT/HCPCS: 71271